=== PATIENT | male | born 2005 | race Caucasian/White ===

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

== ENCOUNTER 2024-04-18 21:40 | Emergency (ER) | payer BC, OTHER ==
[2024-04-18 21:43] LABS: Glucose,Whole Blood 115 mg/dL (70-110)
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
[2024-04-18 22:14] LABS: Basophils % (A) 0 %; Eosinophils # (A) 0.1 k/uL (0-0.7); Eosinophils % (A) 1 %; HCT 46.8 % (39.0-53.0); HGB 15.8 gm/dL (13.0-17.5); Lymphocytes # (A) 3.2 k/uL (1.0-4.8); Lymphocytes % (A) 25 %; MCH 29.5 pg (25.0-35.0); MCHC 33.8 g/dL (31.0-37.0); MCV 87.2 fL (80.0-100.0); Mean Platelet Volume 9.5; Monocytes # (A) 0.6 k/uL (0-1.0); Monocytes % (A) 4 %; Neutrophils # (A) 8.8 k/uL (1.3-7.7); Neutrophils % (A) 69 %; Platelet Count 249 k/uL (150-450); RBC 5.36 m/uL (4.30-5.90); RDW 11.9 % (11.5-15.5); WBC 12.8 k/uL (4.0-11.0)
[2024-04-18 22:31] LABS: Prothrombin Time 11.2 sec (10.0-12.5)
[2024-04-18 22:36] LABS: ALT 20 U/L (4-49); AST 29 U/L (17-59); African American GFR (CKD) >90 (>60 ml/min/1.73 sqM); Albumin 4.8 g/dL (3.5-5.0); Alcohol <10 mg/dL; Alkaline Phosphatase 65 U/L (38-126); Anion Gap 11 mmol/L; Blood Urea Nitrogen 14 mg/dL (9-20); Calcium 9.8 mg/dL (8.4-10.2); Carbon Dioxide 20 mmol/L (22-30); Chloride 108 mmol/L (98-107); Glucose 105 mg/dL (74-99); Non-African American GFR(CKD) >90 (>60 ml/min/1.73 sqM); Potassium 3.6 mmol/L (3.5-5.1); Sodium 139 mmol/L (137-145); Total Bilirubin 0.7 mg/dL (0.2-1.3); Total Protein 7.6 g/dL (6.3-8.2)
[2024-04-18 22:52] LABS: Partial Thromboplastin Time 21.5 sec (22.0-30.0)
[2024-04-18 22:53] VITALS: TEMP 98.4
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
[2024-04-18] MEDS: SODIUM CHLORIDE 0.9% 500 ML 500 ML IV STA ×2 (23:54→23:55)
--- NOTE | 2024-04-19 00:36 | XR ---
EXAM: XR Left Hand, 2 Views CLINICAL HISTORY: ITS.REASON XR Reason: attention 5th digit TECHNIQUE: Frontal and lateral views of the left hand. COMPARISON: No relevant prior studies available. FINDINGS: Bones/joints: Boxer's fracture distal fifth metacarpal bone with volar angulation of the distal fragment, potentially acute. No other fractures. No dislocation. Soft tissues: Unremarkable. No radiopaque foreign body. IMPRESSION: Boxer's fracture distal fifth metacarpal bone with volar angulation of the distal fragment, potentially acute. Correlate clinically.
[2024-04-19] MEDS: HYDROmorphone 0.5 MG/0.5 ML SYRINGE IVP STA ×2 (01:12→01:56)
[2024-04-19] MEDS: ONDANSETRON 4 MG/2 ML VIAL IVP STA (01:16)
[2024-04-19 02:02] VITALS: BP 133/69; PULSE 76; RESP 16
== END 2024-04-19 01:42 | disposition home or self-care (01) ==
LOC: EC 21:40
DX: S30.22XA Contusion of scrotum and testes, initial encounter (principal); S52.202A Unspecified fracture of shaft of left ulna, initial encounter for closed fracture; V29.99XA Rider (driver) (passenger) of other motorcycle injured in unspecified traffic accident, initial encounter; Y92.410 Unspecified street and highway as the place of occurrence of the external cause
CPT/HCPCS: 36415; 93005; 86900; 86901; 80053; 83605; 84484; 85025; 85610; 85730; 86850; 80320; 72170; 73130; 71045; 93975; 76870; 72125; 70450; 71260; 74177; 99285; 96374; 96375; 96361; G0390; J2405; J1170; Q9967

== ENCOUNTER → 2024-05-02 | Outpatient (CLI) | payer OTHER, BC ==
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
== END | disposition home or self-care (01) ==
LOC: RADXRYALE 15:50
PROVIDERS: ATTEND Physician Assistant Medical
DX: M79.642 Pain in left hand (principal)

== ENCOUNTER 2024-06-23 22:46 | Emergency (ER) | payer BC ==
[2024-06-23 22:50] VITALS: TEMP 98
[2024-06-23] MEDS: LIDOCAINE 1% INJ 10MG/ML (20 ML MDV) SQ ONE (23:44)
[2024-06-23] MEDS: MORPHINE SULFATE 4 MG/ML SYRINGE IM STA (23:44)
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
[2024-06-24] MEDS: MORPHINE SULFATE 2 MG/ML SYRINGE IM STA (03:27)
[2024-06-24] MEDS: ACET/COD 300 MG/30 MG STARTER PACK 6 TAB BTL PO STA (03:59)
[2024-06-24 04:04] VITALS: BP 117/72; PULSE 74; RESP 18
--- NOTE | 2024-06-24 07:35 | XR ---
EXAMINATION TYPE: XR hand complete RT DATE OF EXAM: 06/23/2024 COMPARISON: None HISTORY: Right hand injury from entire TECHNIQUE: 4 view right hand FINDINGS: There is a subtle transverse fracture at the base of the proximal phalanx fifth digit. No a dditional fractures evident. Some mild dorsal soft tissue swelling over the proximal interphalangeal joint regions on the lateral projection is present. IMPRESSION: 1. Fracture base proximal phalanx fifth digit right hand [facility], Workstation: [facility], 06/24/2024 7:32 AM
== END 2024-06-24 04:01 | disposition home or self-care (01) ==
LOC: EC 22:46
CPT/HCPCS: 12001; 96372; 99283